=== PATIENT | female | born 2000 | race Caucasian/White ===

== ENCOUNTER 2018-05-03 07:56 | Observation (INO) | payer OTHER ==
[2018-04-29 12:29] LABS: HEMATOCRIT 39.5 % (36.0-47.0); HEMOGLOBIN 13.8 g/dL (12.0-15.5); MEAN CORPUSCULAR HEMOGLOBIN 31.9 pg (27.0-33.4); MEAN CORPUSCULAR HGB CONC 34.8 g/dL (32.0-36.0); MEAN CORPUSCULAR VOLUME 92 fl (80-97); PLATELET COUNT 253 10^3/uL (150-450); RED BLOOD COUNT 4.32 10^6/uL (3.72-5.28); RED CELL DISTRIBUTION WIDTH 12.1 % (11.5-14.0); WHITE BLOOD COUNT 4.3 10^3/uL (4.0-10.5)
[~2018-05-03 07:56] MED LIST: LACTATED RINGERS 1000 ML IV PRN; LIDOCAINE 0.5% INJ-PF (5 MG/ML) 50 ML SDV SUBCUT PRN
[2018-05-03] MEDS ORDERED: BUPIVACAINE HCL 0.5%-EPI 1:200000 INJ/PF 30 ML VIAL ONE (09:41)
[2018-05-03] MEDS ORDERED: FENTANYL CITRATE INJ/PF 100 MCG/2 ML AMPUL IV PRN ×3 (11:31)
[2018-05-03] MEDS ORDERED: PROMETHAZINE HCL INJ 25 MG/1 ML VIAL IV PRN ×3 (11:31→12:11)
[2018-05-03] MEDS ORDERED: ONDANSETRON HCL INJ/PF 4 MG/2 ML SDV IV PRN ×2 (11:31→12:11)
[2018-05-03] MEDS ORDERED: MORPHINE SULFATE 10 MG/ML INJ IV PRN ×2 (11:31→12:11)
[2018-05-03] MEDS ORDERED: MEPERIDINE HCL/PF INJ 25 MG/1 ML DISP.SYRIN IV PRN (11:31)
[2018-05-03] MEDS ORDERED: DIPHENHYDRAMINE HCL 50 MG/ML VIAL IV PRN (11:31)
[2018-05-03] MEDS ORDERED: RINGERS SOLUTION,LACTATED 1,000 ML IV PRN (12:11)
[2018-05-03] MEDS: FENTANYL CITRATE INJ/PF 100 MCG/2 ML AMPUL ONE ×4 (12:15→12:30)
[2018-05-03] MEDS: OXYCODONE-ACETAMINOPHEN 5-325 MG TABLET PO PRN ×2 (13:14→13:22)
[2018-05-03 14:18] VITALS: BP 97/61
[2018-05-03] MEDS ORDERED: SUCCINYLCHOLINE CHLORIDE INJ 200 MG/10 ML VIAL ONE (14:38)
--- NOTE | 2018-05-06 21:15 | OPERATIVE REPORT E ---
Operative Report NAME: ELIJAH YOUNG : 2000 AGE: 18Y DATE OF SURGERY: 05/03/2018 ROOM: OR PREOPERATIVE DIAGNOSES: 1. CHRONIC TONSILLITIS. 2. TONSILLAR HYPERTROPHY. POSTOPERATIVE DIAGNOSES: 1. CHRONIC TONSILLITIS. 2. TONSILLAR HYPERTROPHY. OPERATION PERFORMED: Bilateral tonsillectomy. Patient age greater than 12. SURGEON: CYNTHIA HOOVER D.O. ANESTHETIC: General endotracheal tube. ANESTHESIA STAFF: LAKIA Abraham COMPLICATIONS: None. DRAINS: None. SPONGE COUNT: Verified. MATERIALS FORWARDED SPECIMEN: Left and right tonsillar tissue. FINDINGS: 1. The tonsils were noted to be 2 to 3+ in size, were cryptic in nature, and were with significant tonsillar debris present bilateral. 2. The soft palatal tissues were redundant in nature and the uvula was unremarkable in appearance. ESTIMATED BLOOD LOSS: 5 mL. IV FLUIDS: 500 mL. INDICATIONS: This is a *------* -year-old white female patient who was seen and evaluated in the [facility] office. The patient had been referred for and she complained of a history of chronic tonsillitis symptoms over the year with history consistent with keratosis pharyngeus. The patient, clinically, was also noted to have tonsillar hypertrophy. After extensive discussion with the patient, recommendation and plan was made to proceed with a tonsillectomy. The procedure and all of its risks and complications were discussed in detail with the patient. She voiced an understanding of the described surgical plan, agreed to proceed, and consent was obtained. PROCEDURE: The patient was taken to the main operating room and placed on the operating room tablet in the supine position. Appropriate monitors were placed. Using mask and IV access, general anesthesia was induced. The patient was next transorally intubated without difficulty. At this point, the patient was rotated 90 degrees and positioned and prepped for tonsil and adenoid surgery. The patient's lips, teeth, tongue, gums and inside of the mouth were inspected and noted to be without defect. The patient had a mouth gag inserted. It was opened, and the patient was placed into suspension. At this point, a soft catheter was passed through the patient's nose and used to suspend the soft palate. The findings are as noted above. At this point, the adenoid microdebrider blade at a setting of 1500 RPM, was used to debulk the adenoid tissue. Next, with use of an adenoid pack and suction electrocautery, adequate hemostasis was achieved. At this point, a plasma J-Hook device was used to dissect and remove tonsillar tissue without difficulty. This device was also used to provide adequate hemostasis. There was normal saline irrigation performed and it was suctioned. There was adequate hemostasis noted. At this point, the soft catheter was released and removed from the patient's nose. The mouth gag was released from suspension and closed. It was next reopened and there was again adequate hemostasis noted. The mouth gag was then closed and removed from the patient's mouth. There was no damage noted to the lips, teeth, tongue, gums, or inside of the mouth. The patient was then returned to the anesthesia staff and allowed to emerge from general anesthesia. The patient was extubated in the main operating room and was then transported to the post anesthesia recovery unit in stable condition. There were no complications. DICTATING PHYSICIAN: CYNTHIA HOOVER D.O. [id number] PHY#: [id number] ID: [id number] JOB#: [id number] ACCT: [id number] cc:CYNTHIA HOOVER D.O. >
== END 2018-05-03 14:19 | disposition home or self-care (01) ==
LOC: OROUT 07:56 → INOR 12:11 → UNDOADMOB 14:19 → OROUT 14:19
PROVIDERS: ADMIT Otolaryngology; ATTEND Otolaryngology
PROC: 0CTPXZZ Resection of Tonsils, External Approach (ICD-10-PCS; principal; 2018-05-03 10:00)
DX: J35.1 Hypertrophy of tonsils (principal)
CPT/HCPCS: 36415; 85027; 81025; 88304 ×2; 42826; J3490; J3010; J0330; 170

== ENCOUNTER → 2018-08-01 | Outpatient (CLI) | payer OTHER ==
--- NOTE | 2018-08-01 13:35 | WOMENS IMAGING REPORT ---
EXAM DESCRIPTION: U/S BREAST UNILAT LIMITED COMPLETED DATE/TIME: 08/01/2018 1:10 pm REASON FOR STUDY: N64.59;RIGHT N64.59 OTHER SIGNS AND SYMPTOMS IN BREAST COMPARISON: None. TECHNIQUE: Real-time and static grayscale imaging performed of the right breast targeted to the area of clinical/mammographic concern. Selected color Doppler images recorded. LIMITATIONS: None. FINDINGS: MASS: No mass identified. Normal glandular tissue. OTHER: No other significant finding. IMPRESSION: No suspicious findings detected by ultrasound. BIRAD: 1 Negative. RECOMMENDATION: RECOMMENDED FOLLOW-UP: Follow-up as clinically indicated. COMMENT: The [employer] (ACR) has developed recommendations for screening MRI of the breasts in certain patient populations, to be used in conjunction with mammography. Breast MRI s urveillance may be appropriate for women with more than 20% lifetime risk of developing breast cancer as determined by genetic testing, significant family history of the disease, or history of mantle r adiation for Hodgkins Disease. ACR Practice Guidelines 2008. TECHNICAL DOCUMENTATION: JOB ID: [id number] [employer]- All Rights Reserved Reading location - IP/workstation name: [facility]
--- NOTE | 2018-08-01 13:36 | WOMENS IMAGING REPORT ---
EXAM DESCRIPTION: U/S BREAST UNILAT LIMITED COMPLETED DATE/TIME: 08/01/2018 1:11 pm REASON FOR STUDY: N64.59;LEFT N64.59 OTHER SIGNS AND SYMPTOMS IN BREAST COMPARISON: None. TECHNIQUE: Real-time and static grayscale imaging performed of the left breast targeted to the area of clinical/mammographic concern. Selected color Doppler images recorded. LIMITATIONS: None. FINDINGS: MASS: No mass identified. Normal glandular tissue. OTHER: No other significant finding. IMPRESSION: No suspicious findings detected by ultrasound. BIRAD: 1 Negative. RECOMMENDATION: RECOMMENDED FOLLOW-UP: Follow-up as clinically indicated. COMMENT: The [employer] (ACR) has developed recommendations for screening MRI of the breasts in certain patient populations, to be used in conjunction with mammography. Breast MRI s urveillance may be appropriate for women with more than 20% lifetime risk of developing breast cancer as determined by genetic testing, significant family history of the disease, or history of mantle r adiation for Hodgkins Disease. ACR Practice Guidelines 2008. TECHNICAL DOCUMENTATION: JOB ID: [id number] [employer]- All Rights Reserved Reading location - IP/workstation name: [facility]
== END ==
LOC: WI 10:48
PROVIDERS: ATTEND Physician Assistant
DX: N64.59 Other signs and symptoms in breast (principal)
CPT/HCPCS: 76642

== ENCOUNTER → 2018-09-18 | Outpatient (CLI) | payer OTHER ==
--- NOTE | 2018-09-23 14:36 | RADIOLOGY REPORT (SQ) ---
EXAM DESCRIPTION: MRI BREAST BILAT W AND/OR WO COMPLETED DATE/TIME: 09/18/2018 9:52 am REASON FOR STUDY: OTHER SIGNS AND SYMPTOMS IN BREAST (N64.59)- INVERSION NIPPLE N64.59 OTHER SIGNS AND SYMPTOMS IN BREAST COMPARISON: Ultrasound PATHOLOGIC CORRELATION: None. CONTRAST TYPE AND DOSE: 20 mL Dotare[employer]. RENAL FUNCTION: None required. The patient is less than 50 years old. TECHNIQUE: MR imaging performed with a dedicated breast coil. Pre contrast T1 and T2 weighted images . Pre contrast and post contrast enhanced T1 weighted images with fat saturation. Subtraction images, 3D thick and thin MIPS, and kinetic analysis performed on an independent workstat ion. ([email or web address] workstation) Magnet strength: 1.5 T LIMITATIONS: None. FINDINGS: BREAST DENSITY: d. The breasts are extremely dense, which lowers the sensitivity of mammog estevan. BACKGROUND PARENCHYMAL ENHANCEMENT:Mild. RIGHT BREAST: No enhancing or suspicious masses. No clumped, regional/segmental ductal enhancement. CHEST WALL: Normal tissue planes. No abnormal internal mammary nodes. AXILLA: Normal axillary and retro-pectoral nodes. LEFT BREAST:No enhancing or suspicious masses. No clumped, regional/segmental ductal enhancement. CHEST WALL: Normal tissue planes. No abnormal internal mammary nodes. AXILLA: Normal axillary and retro-pectoral nodes. OTHER:No identified liver, bone, or lung lesions. No other significant incidental findings. IMPRESSION: NORMAL MR OF THE BREASTS. BIRAD: RIGHT BREAST: 1 Negative. LEFT BREAST: 1 Negative. RECOMMENDATION: RECOMMENDED FOLLOW-UP: further intervention should be based on degree of clinical s uspicion . TECHNICAL DOCUMENTATION: JOB ID: [id number] [employer]- All Rights Reserved Reading location - IP/workstation name: [email or web address]
== END ==
LOC: RAD 08:40
PROVIDERS: ATTEND Physician Assistant
DX: N64.59 Other signs and symptoms in breast (principal)
CPT/HCPCS: A9576; C8906; 77059